=== PATIENT | male | born 1965 | race Caucasian/White ===

== ENCOUNTER 2022-06-12 10:42 | Outpatient (CLI) | payer OTHER, SELFPAY ==
[2022-06-12 17:27] LABS: Albumin* 4.6 g/dL (3.3-5.0)
[2022-06-12 17:28] LABS: Chloride* 104 mmol/L (96-114); Potassium* 5.3 mmol/L (3.6-5.1); Sodium* 139 mmol/L (135-149)
[2022-06-12 17:30] LABS: Alanine Aminotransferase* 36 U/L (4-50); Alkaline Phosphatase* 63 U/L (40-150); Aspartate Amino Transferase* 35 U/L (12-35); Bilirubin Total* 0.7 mg/dL (0.1-1.5); Blood Urea Nitrogen* 17 mg/dL (7-30); Carbon Dioxide* 28 mmol/L (20-32); Cholesterol* 256 mg/dL (90-199); Creatinine* 1.1 mg/dL (0.5-1.5); Glucose* 111 mg/dL (60-115); Total Protein* 7.2 g/dL (6.0-8.3)
[2022-06-12 17:31] LABS: Calcium* 9.3 mg/dL (8.4-10.6); HDL Cholesterol* 73 mg/dL (>=40); LDL Cholesterol Calculated 147 mg/dL (<100); Triglycerides* 178 mg/dL (40-149)
[2022-06-12 18:02] LABS: PSA Screen* 0.88 ng/mL (0.10-4.00)
== END 2022-06-12 10:43 | disposition home or self-care (01) ==
PROVIDERS: PCP Emergency Medicine; Visit Provider Emergency Medicine
DX: E78.5 Hyperlipidemia, unspecified (principal); Z12.5 Encounter for screening for malignant neoplasm of prostate
CPT/HCPCS: 80053; 80061; 84153